=== PATIENT | female | born 1935 | race Caucasian/White ===

== ENCOUNTER 2016-11-23 11:16 | Day surgery (SDC) | payer MEDICARE, BC ==
[2016-11-23 11:48] VITALS: RESP 14; O2SAT 98
[2016-11-23] MEDS ORDERED: TRIAMCINOLONE ACETONIDE 40 MG/ML SUS ONE (12:38)
[2016-11-23] MEDS ORDERED: LIDOCAINE HCL 1% MPF SOL ONE (12:49)
[2016-11-23 13:11] VITALS: BP 156/67; PULSE 78; TEMP 96.9
== END 2016-11-23 13:29 | disposition home or self-care (01) | DRG 552 ==
LOC: SURG 11:16
PROVIDERS: ATTEND Nurse Anesthetist, Certified Registered
DX: M54.5 Low back pain (principal); M54.17 Radiculopathy, lumbosacral region
CPT/HCPCS: J2001; J3300

== ENCOUNTER → 2017-01-18 | Day surgery (SDC) | payer MEDICARE, BC ==
[~2017-01-18] MED LIST: DEXAMETHASONE SOD PHOS PF 10 MG/ML SOL IJ ONE; LIDOCAINE HCL 1% MPF SOL ONE
[2017-01-18 12:00] VITALS: RESP 16; TEMP 97; O2SAT 97
[2017-01-18 13:03] VITALS: BP 138/68; PULSE 78
== END | disposition home or self-care (01) | DRG 552 ==
LOC: SURG 11:32
PROVIDERS: ATTEND Nurse Anesthetist, Certified Registered
DX: M54.5 Low back pain (principal); M99.83 Other biomechanical lesions of lumbar region
CPT/HCPCS: J1100; J2001

== ENCOUNTER 2017-02-03 14:23 | Day surgery (SDC) | payer MEDICARE, BC ==
[2017-02-03] MEDS ORDERED: DEXAMETHASONE SOD PHOS PF 10 MG/ML SOL IJ ONE (15:08)
[2017-02-03] MEDS ORDERED: LIDOCAINE HCL 1% MPF SOL ONE (15:22)
[2017-02-03 15:44] VITALS: BP 134/74; PULSE 83; RESP 24; TEMP 98; O2SAT 98
== END 2017-02-03 16:00 | disposition home or self-care (01) | DRG 552 ==
LOC: SURG 14:23
PROVIDERS: ATTEND Nurse Anesthetist, Certified Registered
DX: M54.5 Low back pain (principal); M54.16 Radiculopathy, lumbar region
CPT/HCPCS: J1100; J2001

== ENCOUNTER 2019-02-14 12:15 | Day surgery (SDC) | payer MEDICARE, BC ==
[2019-02-14] MEDS ORDERED: PROPOFOL 500 MG/50 ML EMU IV ONE (12:27)
[2019-02-14 14:27] VITALS: TEMP 97.6
[2019-02-14 15:00] VITALS: BP 141/62; PULSE 76; RESP 18; O2SAT 97
== END 2019-02-14 15:40 | disposition home or self-care (01) | DRG 951 ==
LOC: SURG 12:15
PROVIDERS: ATTEND Surgery
DX: Z12.11 Encounter for screening for malignant neoplasm of colon (principal); K57.32 Diverticulitis of large intestine without perforation or abscess without bleeding; Z86.010 Personal history of colon polyps; D12.2 Benign neoplasm of ascending colon
CPT/HCPCS: J2704